=== PATIENT | female | born 1990 | race Caucasian/White ===

== ENCOUNTER → 2017-10-22 | Outpatient (REF) | payer BC ==
[2017-10-22 12:03] LABS: FREE T4 1.07 NG/DL (0.76-1.46)
[2017-10-22 12:04] LABS: PROLACTIN 9.1 NG/ML
[2017-10-22 12:06] LABS: TOTAL T3 107.1 NG/DL (60.0-181.0)
[2017-10-22 12:07] LABS: ESTRADIOL 357.9 PG/ML
[2017-10-22 12:08] LABS: FOLLICLE STIMULATING HORMONE 4.4 mIU/mL
== END ==
LOC: M LABDRAWC 11:19
DX: E06.3 Autoimmune thyroiditis (principal); N92.6 Irregular menstruation, unspecified

== ENCOUNTER → 2018-12-28 | Outpatient (CLI) | payer BC ==
[~2018-12-28] MED LIST: PROHANCE 279.3MG/ML 15ML VIAL (A9576) As Ordered ONE
--- NOTE | 2018-12-29 10:08 | REP ---
MRI orbits without and with IV contrast: History: Diplopia. Technique: Axial, sagittal and coronal imaging planes utilized. T1 and T2-weighted scans are included with and without fat saturation. Gadolinium enhancement dose is 12 ml of intravenous ProHance. MRI findings: There is no evidence of intraconal or extraconal orbital mass lesion. No intraocular abnormality is seen. The rectus muscles are normal in thickness and appearance. Optic nerves are unremarkable bilaterally. The optic chiasm and suprasellar cistern are unremarkable. No vascular abnormality is observed. Visualized paranasal sinuses are clear. Postcontrast images show enhancement in normal vascular structures. No abnormal contrast enhancement is appreciated. Impression: Normal orbital MRI study without and with IV contrast. Electronically Signed by Harris Juárez MD 12/29/2018 10:20 A
--- NOTE | 2018-12-29 10:19 | REP ---
MRI brain without and with IV contrast: History: Diplopia. Technique: Axial and sagittal imaging planes are utilized for T1 and T2-weighted scans. Sequences include spin-echo, fast spin echo, FLAIR, and diffusion weighted sequences. Gadolinium enhancement dose is 12 mL of intravenous ProHance. MRI findings: The bony calvarium appears intact. Craniocervical junction and upper cervical cord are normal in appearance. There is no MR evidence of significant paranasal sinus disease. No intraorbital lesion is seen. Diffusion weighted scans show no evidence of restricted diffusion. There is no evidence of intracranial hemorrhage. Lateral, third and fourth ventricles are normal in size and position. FLAIR sequence demonstrates three to four foci of subcortical white matter hyperintensity in the frontal lobes bilaterally. These are nonspecific. No T1 hypointensity is seen. No contrast enhancement is noted in any of these areas. There are all quite tiny. There is no evidence of intracranial mass lesion. No extra-axial fluid collection or infarct is seen. Sella turcica and suprasellar cistern are unremarkable. No abnormal contrast enhancement is seen. Impression: A few scattered nonspecific subcortical white matter foci of hyperintensity in the frontal lobes bilaterally. These are nonspecific. Otherwise negative MRI study without and with IV contrast. Electronically Signed by Harris Juárez MD 12/29/2018 10:20 A
== END ==
LOC: M RAD 15:37
DX: H53.2 Diplopia (principal)
CPT/HCPCS: 70543; 70553; A9576

== ENCOUNTER 2019-05-05 11:10 | Outpatient (CLI) | payer BC ==
[~2019-05-05] VITALS: Ht 162.6 cm; Wt 64.9 kg
[2019-05-05 11:25] VITALS: BP 115/62
[2019-05-05] MEDS ORDERED: HYDROCORTISONE 100 MG/2 ML VIAL (J1720 PER 1) IV ONE (12:00)
[2019-05-05] MEDS ORDERED: IMMUNE GLOBULIN 10% 20 GM in IV 1 EA IV ONE (12:00)
[2019-05-05] MEDS ORDERED: diphenhydrAMINE INJ 50MG/ML VIAL (J1200) IV ONE (12:00)
[2019-05-05] MEDS ORDERED: EPINEPHrine INJ 1 MG/ML 1ML VIAL IM PRN (12:00)
[2019-05-05] MEDS ORDERED: IMMUNE GLOBULIN 10% 10 GM in IV 1 EA IV ONE (12:00)
[2019-05-05 12:55] VITALS: BP 98/55
[2019-05-05 13:25] VITALS: BP 105/58
[2019-05-05 13:55] VITALS: BP 106/58
[2019-05-05 14:25] VITALS: BP 101/57
[2019-05-05 15:50] VITALS: BP 107/61
== END 2019-05-05 15:50 | disposition home or self-care (01) ==
LOC: M INFU 11:10
DX: G70.00 Myasthenia gravis without (acute) exacerbation (principal)
CPT/HCPCS: 96365; 96366; 96375; J1200; J1459; J1720

== ENCOUNTER 2019-05-07 11:03 | Emergency (ER) | payer BC ==
[~2019-05-07] VITALS: Ht 162.6 cm; Wt 63.6 kg
[2019-05-07] MEDS ORDERED: KETOROLAC 30 MG/ML VIAL (J1885) IV ONE (11:30)
[2019-05-07] MEDS ORDERED: METOCLOPRAMIDE INJ 10MG/2ML VIAL (J2765) IV ONE (11:30)
[2019-05-07] MEDS ORDERED: diphenhydrAMINE INJ 50MG/ML VIAL (J1200) IV ONE (11:30)
[2019-05-07] MEDS ORDERED: NS 1,000 ML IV ONE (11:30)
[2019-05-07 11:43] LABS: BASO % 0.4 % (0.0-1.0); EOS # 0.1 10^3/uL (0.0-0.5); HEMATOCRIT 41.6 % (36.0-47.0); HEMOGLOBIN 13.5 g/dl (12.0-15.5); LYMPH # 1.5 10^3/uL (1.5-5.0); LYMPH % 30.9 % (24.0-44.0); MEAN CORPUSCULAR HEMOGLOBIN 29.5 pg (27.0-33.0); MEAN CORPUSCULAR HGB CONC 32.5 g/dl (32.0-36.5); MEAN CORPUSCULAR VOLUME 90.8 fl (80.0-96.0); MONO # 0.6 10^3/uL (0.0-0.8); MONO % 11.2 % (0.0-5.0); NEUTROPHILS # 2.8 10^3/uL (1.5-8.5); NEUTROPHILS % 56.3 % (36.0-66.0); PLATELET COUNT, AUTOMATED 203 10^3/uL (150-450); RED BLOOD COUNT 4.58 10^6/uL (4.00-5.40); WHITE BLOOD COUNT 4.9 10^3/uL (4.0-10.0)
--- NOTE | 2019-05-07 12:37 | REP ---
CT of the brain without IV contrast: There are no comparisons. There is no intracranial hemorrhage. There is no edema, mass effect or midline shift. The cortical stripe is unremarkable. Ventricles are normal size and midline. The visualized paranasal sinuses and mastoid air cells are clear. Impression: Essentially negative CT study of the brain without IV contrast. Electronically Signed by Reji Jewell MD 05/07/2019 12:29 P
[2019-05-07 12:56] VITALS: BP 97/53
== END 2019-05-07 13:01 | disposition home or self-care (01) ==
LOC: M ED 11:03
DX: G43.909 Migraine, unspecified, not intractable, without status migrainosus (principal); T50.995A Adverse effect of other drugs, medicaments and biological substances, initial encounter; X58.XXXA Exposure to other specified factors, initial encounter; Y92.89 Other specified places as the place of occurrence of the external cause; G70.00 Myasthenia gravis without (acute) exacerbation
CPT/HCPCS: 70450; 84702; 85025; 96361; 96374; 96375; 99284; J1200; J1885; J2765

== ENCOUNTER 2019-06-04 08:03 | Outpatient (CLI) | payer BC ==
[~2019-06-04] VITALS: Ht 162.6 cm; Wt 63.4 kg
[2019-06-04] MEDS ORDERED: methylPREDNISolone 500 MG VIAL (J2930) IV ONE (08:15)
[2019-06-04 08:36] VITALS: BP 108/56
[2019-06-04 09:45] VITALS: BP 104/57
[2019-06-04] MEDS ORDERED: methylPREDNISolone 500 MG, VIAL MATE ADAPTER 1 EACH in D5W 250 ML IV ONE (09:45)
[2019-06-04] MEDS ORDERED: METH50VL IV (21:43)
== END 2019-06-04 09:45 | disposition home or self-care (01) ==
LOC: M INFU 08:03
PROVIDERS: ATTEND Nurse Practitioner
DX: G70.00 Myasthenia gravis without (acute) exacerbation (principal)
CPT/HCPCS: 96365; J2930

== ENCOUNTER 2019-06-04 21:35 | Emergency (ER) | payer BC ==
[~2019-06-04] VITALS: Ht 162.6 cm; Wt 67.4 kg
[2019-06-04] MEDS ORDERED: METH50VL IV (21:43)
[2019-06-04] MEDS ORDERED: NS 500 ML IV ONE (22:45)
[2019-06-04 23:13] LABS: BLOOD UREA NITROGEN 11 MG/DL (7-18); CARBON DIOXIDE LEVEL 25 MEQ/L (21-32); CHLORIDE LEVEL 108 MEQ/L (98-107); CREATININE FOR GFR 0.69 MG/DL (0.55-1.30); GLOMERULAR FILTRATION RATE > 60.0 (>60); GLUCOSE, FASTING 142 MG/DL (70-100); POTASSIUM SERUM 4.1 MEQ/L (3.5-5.1); SODIUM LEVEL 138 MEQ/L (136-145)
[2019-06-05 00:05] VITALS: BP 113/55
== END 2019-06-05 00:10 | disposition home or self-care (01) ==
LOC: M ED 21:35
DX: R53.83 Other fatigue (principal); R22.31 Localized swelling, mass and lump, right upper limb; T38.0X5A Adverse effect of glucocorticoids and synthetic analogues, initial encounter; G70.01 Myasthenia gravis with (acute) exacerbation; E03.9 Hypothyroidism, unspecified

== ENCOUNTER 2019-06-11 07:57 | Outpatient (CLI) | payer BC ==
[~2019-06-11] VITALS: Ht 162.6 cm; Wt 63.6 kg
[~2019-06-11 07:57] MED LIST changes: +METH50VL IV; -PROHANCE 279.3MG/ML 15ML VIAL (A9576) As Ordered ONE
[2019-06-11 08:00] VITALS: BP 103/57
[2019-06-11] MEDS ORDERED: methylPREDNISolone 500 MG, VIAL MATE ADAPTER 1 EACH in D5W 250 ML IV ONE (08:15)
[2019-06-11] MEDS ORDERED: methylPREDNISolone 250 MG in D5W 100 ML IV ONE (09:30)
[2019-06-11 10:20] VITALS: BP 101/50
[2019-06-11 11:10] VITALS: BP 100/58
[2019-06-11 12:00] VITALS: BP 100/55
== END 2019-06-11 12:00 | disposition home or self-care (01) ==
LOC: M INFU 07:57
PROVIDERS: ATTEND Nurse Practitioner
DX: G70.00 Myasthenia gravis without (acute) exacerbation (principal)
CPT/HCPCS: 96365; 96366; J2930

== ENCOUNTER 2019-06-18 10:27 | Outpatient (CLI) | payer BC ==
[~2019-06-18] VITALS: Ht 162.6 cm; Wt 63.6 kg
[2019-06-18 10:25] VITALS: BP 103/63
[2019-06-18] MEDS ORDERED: methylPREDNISolone 500 MG, VIAL MATE ADAPTER 1 EACH in D5W 250 ML IV ONE (11:00)
[2019-06-18] MEDS ORDERED: methylPREDNISolone 250 MG in D5W 100 ML IV ONE (11:30)
[2019-06-18 12:15] VITALS: BP 99/53
== END 2019-06-18 13:15 | disposition home or self-care (01) ==
LOC: M INFU 10:27
PROVIDERS: ATTEND Nurse Practitioner
DX: G70.00 Myasthenia gravis without (acute) exacerbation (principal)
CPT/HCPCS: 96365; 96366; J2930

== ENCOUNTER 2019-06-25 13:00 | Outpatient (CLI) | payer BC ==
[~2019-06-25] VITALS: Ht 162.6 cm; Wt 65.9 kg
[2019-06-25 13:05] VITALS: BP 133/76
[2019-06-25] MEDS ORDERED: methylPREDNISolone 250 MG in D5W 100 ML IV ONE (14:00)
[2019-06-25 14:32] VITALS: BP 103/53
[2019-06-25 15:37] VITALS: BP 112/58
== END 2019-06-25 15:40 | disposition home or self-care (01) ==
LOC: M INFU 13:00
PROVIDERS: ATTEND Nurse Practitioner
DX: G70.00 Myasthenia gravis without (acute) exacerbation (principal)
CPT/HCPCS: 96365; 96366; J2930

== ENCOUNTER → 2020-08-21 | Outpatient (CLI) | payer OTHER ==
[~2020-08-21] MED LIST changes: +PROHANCE 279.3MG/ML 15ML VIAL As Ordered ONE
--- NOTE | 2020-08-21 16:11 | REPVR ---
PROCEDURE INFORMATION: Exam: MR Orbit Without and With Contrast Exam date and time: 08/21/2020 2:42 PM Age: 29 years old Clinical indication: Visual changes or disturbances; Double vision, Diplopia, esotropia. TECHNIQUE: Imaging protocol: MR Orbit was performed without and with intravenous contrast. Contrast material: PROHANCE; Contrast volume: 15 ml; Contrast route: INTRAVENOUS (IV); COMPARISON: MRI ORBIT FACE NECK W/O FOLL W 12/28/2018 4:02 PM FINDINGS: Orbital cavity: Globes are normal. Intraconal fat is normal. Extraocular muscles are normal. Optic tracts are normal. Optic nerves are normal. No abnormal enhancement within the orbits. Paranasal sinuses: Unremarkable. No air-fluid levels. Soft tissues: Unremarkable. IMPRESSION: No acute findings in the orbits. PROCEDURE INFORMATION: Exam: MR Head Without Contrast Exam date and time: 08/21/2020 2:42 PM Age: 29 years old Clinical indication: Visual changes or disturbances; Double vision (diplopra); Additional info: Diplopia, esotropia TECHNIQUE: Imaging protocol: MR of the head without contrast. COMPARISON: MRI ORBIT FACE NECK W/O FOLL W 12/28/2018 4:02 PM FINDINGS: Brain: No evidence of acute intracranial hemorrhage or extra-axial fluid collection. No evidence of mass effect or midline shift. No white matter abnormalities. Normal flow voids for intracranial arterial vasculature. Cerebral ventricles: Ventricles, cisterns, and sulci are normal. Bones/joints: Unremarkable. Mastoid air cells: No mastoid effusion. Soft tissues: Unremarkable. IMPRESSION: No acute intracranial findings. Electronically signed by: Rashad Valles On 08/21/2020 16:11:19 PM
== END ==
LOC: M RAD 14:35
PROVIDERS: ATTEND Ophthalmology Neuro-ophthalmology
DX: H53.2 Diplopia (principal); H50.22 Vertical strabismus, left eye; H50.00 Unspecified esotropia; H05.20 Unspecified exophthalmos
CPT/HCPCS: 70543; A9576